=== PATIENT | male | born 1995 | race Two or more races ===

== ENCOUNTER 2017-09-29 16:36 | Emergency (ER) | payer MEDICAID, OTHER ==
[~2017-09-29] VITALS: Ht 177.8 cm; Wt 104.3 kg
[2017-09-29 16:41] VITALS: BP 125/75
[2017-09-29] MEDS ORDERED: IBUPROFEN 400 MG TABLET PO ONE (17:00)
[2017-09-29] MEDS ORDERED: IBUPROFEN 400 MG TABLET ONE (17:10)
== END 2017-09-29 18:28 | disposition home or self-care (01) ==
LOC: ER 16:38
DX: S46.811A Strain of other muscles, fascia and tendons at shoulder and upper arm level, right arm, initial encounter (principal); X50.0XXA Overexertion from strenuous movement or load, initial encounter; Y93.89 Activity, other specified; Y92.89 Other specified places as the place of occurrence of the external cause; Y99.8 Other external cause status
CPT/HCPCS: 73030-TC; A4606; Z7610